=== PATIENT | female | born 1950 | race Caucasian/White ===

== ENCOUNTER 2016-10-07 07:17 | Inpatient (IN) | payer MEDICARE, MEDICAID ==
[2016-09-17 08:41] VITALS: BP_SYST 140; RESP 20; TEMP 98.2
[~2016-10-07] VITALS: Ht 162.6 cm; Wt 98.4 kg
[2016-10-07] VITALS (24 sets, daily range): BP systolic 93–122; RESP 14–29; TEMP 96.9–98.3; Ht 162.6 cm; Wt 98.4 kg
[2016-10-07] MEDS ORDERED: PROPOFOL 20 ML PER ML IV ONE (07:39)
[2016-10-07] MEDS ORDERED: ROCURONIUM 50 MG VIAL IV ONE (07:39)
[2016-10-07] MEDS ORDERED: DILAUDID 1 MG/ML AMP IV ONE (07:39)
[2016-10-07] MEDS ORDERED: GLYCOPYRROLATE 0.2 MG/ML VIAL IV ONE ×2 (07:39→08:40)
[2016-10-07] MEDS ORDERED: NEOSTIGMINE 10 MG/10 ML VIAL IV ONE (07:39)
[2016-10-07] MEDS ORDERED: FENTANYL 100 MCG/2 ML AMP IV ONE (07:39)
[2016-10-07] MEDS ORDERED: ACETAMINOPHEN 1,000 MG/100 ML IV ONE (07:39)
[2016-10-07] MEDS ORDERED: LIDOCAINE 2% SYR 5 ML IV ONE (07:39)
[2016-10-07] MEDS ORDERED: ONDANSETRON 4 MG VIAL IV PUSH ONE (07:39)
[2016-10-07] MEDS ORDERED: BACITRACIN 50,000 UNITS INJ IRRIG ONE (07:45)
[2016-10-07] MEDS ORDERED: BACITRACIN OINT TOPICAL ONE (07:45)
[2016-10-07] MEDS ORDERED: ROPIVACAINE 0.5% 139 MG, EPINEPHrine 1:1,000 0.2 MG, KETOROLAC INJ 30 MG, MORPHINE 10 MG SUBQ ONE ×4 (08:20)
[2016-10-07] MEDS ORDERED: VANCOMYCIN 1,000 MG in SODIUM CHLORIDE 0.9% 250 ML IV ONE (08:35)
[2016-10-07] MEDS ORDERED: CEFAZOLIN 3,000 MG in SODIUM CHLORIDE 0.9% 100 ML IV ONE (08:35)
[2016-10-07] MEDS ORDERED: MIDAZOLAM 2 MG/2 ML INJ IV ONE (08:40)
[2016-10-07] MEDS ORDERED: LIDOCAINE 1% BUFFERED 1 ML SYR INTRADERM PRN (08:40)
[2016-10-07] MEDS ORDERED: SODIUM CHLORIDE 0.9% 1,000 ML IV SCH (08:40)
[2016-10-07] MEDS ORDERED: DILAUDID 1 MG/ML AMP IV PRN (11:35)
[2016-10-07] MEDS ORDERED: MORPHINE 2 MG/ML SYR IV PRN (11:35)
[2016-10-07] MEDS ORDERED: OXYCODONE 5 MG TAB PO PRN (11:35)
[2016-10-07] MEDS ORDERED: ONDANSETRON 4 MG VIAL IV PRN ×2 (11:35→13:30)
[2016-10-07] MEDS ORDERED: MEPERIDINE 25 MG/ML IV PRN (11:35)
[2016-10-07] MEDS ORDERED: MORPHINE 4 MG/ML SYR IV PRN (11:35)
[2016-10-07] MEDS ORDERED: MAG HYDROX 30 ML UDC PO PRN (13:30)
[2016-10-07] MEDS ORDERED: PHARMACY TO DOSE VANCOMYCIN IV SCH (13:30)
[2016-10-07] MEDS ORDERED: LACT RINGERS 1,000 ML IV SCH (13:30)
[2016-10-07] MEDS ORDERED: PROMETHAZINE 25 MG/ML VIAL IM/IV PRN (13:30)
[2016-10-07] MEDS ORDERED: ZOLPIDEM 5 MG TAB PO PRN (13:30)
[2016-10-07] MEDS ORDERED: SALINE FLUSH 10 ML FLUSH PRN (13:30)
[2016-10-07] MEDS ORDERED: ROPIVACAINE 5 MG/ML 30 ML EPIDURAL ONE (13:50)
[2016-10-07] MEDS: KETOROLAC 30 MG/ML VIAL IV PRN (14:40)
[2016-10-07] MEDS: PANTOPRAZOLE 40 MG TAB PO SCH (15:00)
[2016-10-07] MEDS: METOCLOPRAMIDE 10 MG TAB PO SCH ×3 (15:42→20:48)
[2016-10-07] MEDS: Furosemide 40 MG TAB PO SCH (15:43)
[2016-10-07] MEDS: KCL CR 10 MEQ TAB PO SCH (15:43)
[2016-10-07] MEDS: CEFAZOLIN 2,000 MG in SODIUM CHLORIDE 0.9% 100 ML IV SCH ×2 (16:12→23:17)
[2016-10-07] MEDS: SALINE FLUSH 10 ML FLUSH SCH (19:17)
[2016-10-07] MEDS: VANCOMYCIN 1,500 MG in SODIUM CHLORIDE 0.9% 250 ML IV SCH (20:44)
[2016-10-07] MEDS: Atorvastatin 10 MG TAB PO SCH (20:45)
[2016-10-07] MEDS: AMITRIPTYLINE 50 MG TAB PO SCH (20:45)
[2016-10-07] MEDS: ATENOLOL 25 MG TAB PO SCH (20:45)
[2016-10-07] MEDS: SERTRALINE 100 MG TAB PO SCH (20:45)
[2016-10-07] MEDS: GABAPENTIN 300 MG CAP PO SCH (20:46)
[2016-10-07] MEDS: SENNA 8.6 MG TAB PO SCH (20:46)
[2016-10-07] MEDS: DOCUSATE SOD 100 MG CAP PO SCH (20:46)
[2016-10-08 02:36] VITALS: BP_SYST 136; RESP 16; TEMP 97.5
[2016-10-08] MEDS: KETOROLAC 30 MG/ML VIAL IV PRN ×3 (03:19→18:06)
[2016-10-08] MEDS: CEFAZOLIN 2,000 MG in SODIUM CHLORIDE 0.9% 100 ML IV SCH ×2 (04:25→11:38)
[2016-10-08] MEDS: MORPHINE 4 MG/ML SYR IV PRN ×4 (04:25→21:24)
[2016-10-08] MEDS: SODIUM CHLORIDE 0.9% FLUSH BAG 500 ML IV SCH (05:06)
[2016-10-08] MEDS: Rivaroxaban 10 MG TAB PO SCH (06:06)
[2016-10-08] MEDS: PANTOPRAZOLE 40 MG TAB PO SCH (06:06)
[2016-10-08 07:00] VITALS: BP_SYST 100; RESP 18; TEMP 97.4
[2016-10-08] MEDS: SALINE FLUSH 10 ML FLUSH SCH ×2 (07:29→19:32)
[2016-10-08] MEDS: DOCUSATE SOD 100 MG CAP PO SCH ×2 (08:20→20:33)
[2016-10-08] MEDS: METOCLOPRAMIDE 10 MG TAB PO SCH ×4 (08:20→20:32)
[2016-10-08] MEDS: SERTRALINE 100 MG TAB PO SCH ×2 (08:21→20:33)
[2016-10-08] MEDS: ALPRAZOLAM 1 MG TAB PO SCH (08:21)
[2016-10-08] MEDS: GABAPENTIN 300 MG CAP PO SCH ×2 (08:21→20:33)
[2016-10-08] MEDS: Furosemide 40 MG TAB PO SCH (08:21)
[2016-10-08] MEDS: KCL CR 10 MEQ TAB PO SCH (08:21)
[2016-10-08] MEDS: POLYETHYLENE GLYCOL 17 GM PACKET PO SCH (08:22)
[2016-10-08] MEDS: SENNA 8.6 MG TAB PO SCH ×2 (08:22→20:33)
[2016-10-08] MEDS: MAG HYDROX 30 ML UDC PO SCH (08:23)
[2016-10-08] MEDS: VANCOMYCIN 1,500 MG in SODIUM CHLORIDE 0.9% 250 ML IV SCH (08:26)
[2016-10-08] MEDS: ATENOLOL 25 MG TAB PO SCH ×2 (09:00→20:34)
[2016-10-08 11:55] VITALS: BP_SYST 105; RESP 18; TEMP 98
[2016-10-08] MEDS: OXYCODONE/APAP 7.5/325 TAB PO PRN ×2 (12:43→19:32)
[2016-10-08 15:30] VITALS: BP_SYST 114; RESP 18; TEMP 97.9
[2016-10-08] MEDS ORDERED: BISACODYL 10 MG SUPP RECTAL PRN (15:40)
[2016-10-08] MEDS ORDERED: FLEET ENEMA 132 ML BTL RECTAL PRN (15:40)
[2016-10-08 20:02] VITALS: BP_SYST 121; RESP 16; TEMP 98.2
[2016-10-08] MEDS: AMITRIPTYLINE 50 MG TAB PO SCH (20:32)
[2016-10-08] MEDS: Atorvastatin 10 MG TAB PO SCH (20:33)
[2016-10-08 22:46] VITALS: BP_SYST 112; RESP 16; TEMP 99.2
[2016-10-09] MEDS: KETOROLAC 30 MG/ML VIAL IV PRN ×2 (00:04→11:20)
[2016-10-09] MEDS: OXYCODONE/APAP 7.5/325 TAB PO PRN ×5 (02:27→21:17)
[2016-10-09 02:38] VITALS: BP_SYST 129; RESP 16; TEMP 97.2
[2016-10-09] MEDS: SODIUM CHLORIDE 0.9% FLUSH BAG 500 ML IV SCH (05:42)
[2016-10-09] MEDS: PANTOPRAZOLE 40 MG TAB PO SCH (06:25)
[2016-10-09] MEDS: Rivaroxaban 10 MG TAB PO SCH (06:25)
[2016-10-09 08:22] VITALS: BP_SYST 117; RESP 18; TEMP 98.4
[2016-10-09] MEDS: MAG HYDROX 30 ML UDC PO SCH (08:36)
[2016-10-09] MEDS: Furosemide 40 MG TAB PO SCH (08:36)
[2016-10-09] MEDS: GABAPENTIN 300 MG CAP PO SCH ×2 (08:36→21:18)
[2016-10-09] MEDS: KCL CR 10 MEQ TAB PO SCH (08:36)
[2016-10-09] MEDS: ATENOLOL 25 MG TAB PO SCH ×2 (08:37→21:18)
[2016-10-09] MEDS: POLYETHYLENE GLYCOL 17 GM PACKET PO SCH (08:37)
[2016-10-09] MEDS: METOCLOPRAMIDE 10 MG TAB PO SCH ×4 (08:37→21:17)
[2016-10-09] MEDS: SALINE FLUSH 10 ML FLUSH SCH ×2 (08:37→20:00)
[2016-10-09] MEDS: ALPRAZOLAM 1 MG TAB PO SCH (08:37)
[2016-10-09] MEDS: DOCUSATE SOD 100 MG CAP PO SCH ×2 (08:37→20:14)
[2016-10-09] MEDS: SERTRALINE 100 MG TAB PO SCH ×2 (08:37→21:17)
[2016-10-09] MEDS: SENNA 8.6 MG TAB PO SCH ×2 (08:37→20:15)
[2016-10-09 12:30] VITALS: BP_SYST 113; RESP 18; TEMP 97.6
[2016-10-09 20:05] VITALS: BP_SYST 122; RESP 20; TEMP 97.4
[2016-10-09] MEDS: AMITRIPTYLINE 50 MG TAB PO SCH (21:19)
[2016-10-09] MEDS: Atorvastatin 10 MG TAB PO SCH (21:19)
[2016-10-10] MEDS: OXYCODONE/APAP 7.5/325 TAB PO PRN ×3 (01:05→11:50)
[2016-10-10 01:21] VITALS: BP_SYST 119; RESP 20; TEMP 97.5
[2016-10-10] MEDS: SODIUM CHLORIDE 0.9% FLUSH BAG 500 ML IV SCH (05:33)
[2016-10-10] MEDS: PANTOPRAZOLE 40 MG TAB PO SCH (06:09)
[2016-10-10] MEDS: Rivaroxaban 10 MG TAB PO SCH (06:09)
[2016-10-10 07:35] VITALS: BP_SYST 96; RESP 14; TEMP 98.3
[2016-10-10] MEDS: SALINE FLUSH 10 ML FLUSH SCH (08:00)
[2016-10-10] MEDS: MAG HYDROX 30 ML UDC PO SCH (08:35)
[2016-10-10] MEDS: POLYETHYLENE GLYCOL 17 GM PACKET PO SCH (08:35)
[2016-10-10] MEDS: Furosemide 40 MG TAB PO SCH (08:36)
[2016-10-10] MEDS: KCL CR 10 MEQ TAB PO SCH (08:36)
[2016-10-10] MEDS: DOCUSATE SOD 100 MG CAP PO SCH (08:36)
[2016-10-10] MEDS: GABAPENTIN 300 MG CAP PO SCH (08:37)
[2016-10-10] MEDS: METOCLOPRAMIDE 10 MG TAB PO SCH ×2 (08:37→13:05)
[2016-10-10] MEDS: SENNA 8.6 MG TAB PO SCH (08:37)
[2016-10-10] MEDS: ALPRAZOLAM 1 MG TAB PO SCH (08:38)
[2016-10-10] MEDS: SERTRALINE 100 MG TAB PO SCH (08:38)
[2016-10-10] MEDS: ATENOLOL 25 MG TAB PO SCH (08:39)
[2016-10-10 11:46] VITALS: BP_SYST 128; RESP 22; TEMP 97.5
[2016-10-10 13:11] VITALS: BP_SYST 128; RESP 22; TEMP 97.5
== END 2016-10-10 14:06 | disposition home health service (06) | DRG 470 ==
LOC: ENRESERVTM → ENRESERVDT → ENPENDDIS 08:13 → SDS 08:13 → 2NO 14:17
PROVIDERS: ADMIT Family Medicine; ATTEND Family Medicine
PROC: 0SRD0JZ Replacement of Left Knee Joint with Synthetic Substitute, Open Approach (ICD-10-PCS; principal; 2016-10-07 10:31)
DX: M17.12 Unilateral primary osteoarthritis, left knee (principal); N18.3 Chronic kidney disease, stage 3 (moderate); I12.9 Hypertensive chronic kidney disease with stage 1 through stage 4 chronic kidney disease, or unspecified chronic kidney disease; Z95.3 Presence of xenogenic heart valve; M47.812 Spondylosis without myelopathy or radiculopathy, cervical region; M75.102 Unspecified rotator cuff tear or rupture of left shoulder, not specified as traumatic; M75.101 Unspecified rotator cuff tear or rupture of right shoulder, not specified as traumatic; F17.210 Nicotine dependence, cigarettes, uncomplicated; Z79.82 Long term (current) use of aspirin
CPT/HCPCS: 80048; 85025; 86850; 86870; 86900; 86901; 94762; 94799; 99223; 99232; 99233; 99239